=== PATIENT | male | born 1950 | race Caucasian/White ===

== ENCOUNTER → 2018-11-05 | Outpatient (CLI) | payer OTHER, MEDICARE ==
[~2018-11-05] MED LIST: BUSP5 PO; HYDACE5 PO; LORA1 PO; RXHYDACE PO
== END | disposition home or self-care (01) ==
LOC: LAB SHORT 18:08 → LAB EV 18:08
DX: N49.2 Inflammatory disorders of scrotum (principal)
CPT/HCPCS: 87070; 87077; 87147; 87186; 87205

== ENCOUNTER 2019-03-16 19:30 | Emergency (ER) | payer MEDICARE, OTHER ==
[~2019-03-16] VITALS: Ht 177.8 cm; Wt 79.4 kg
[2019-03-16] MEDS ORDERED: LOSA25 (20:09)
[2019-03-16] MEDS ORDERED: TRAZ100 (20:09)
== END 2019-03-16 21:41 | disposition home or self-care (01) ==
LOC: ER 19:30
DX: S61.012A Laceration without foreign body of left thumb without damage to nail, initial encounter (principal); W26.8XXA Contact with other sharp object(s), not elsewhere classified, initial encounter; Z88.8 Allergy status to other drugs, medicaments and biological substances; Z79.899 Other long term (current) drug therapy; Z79.891 Long term (current) use of opiate analgesic; I10 Essential (primary) hypertension; J45.909 Unspecified asthma, uncomplicated; Z87.891 Personal history of nicotine dependence
CPT/HCPCS: 12001; 90471; 90714; 99282-25

== ENCOUNTER 2024-03-31 07:06 | Day surgery (SDC) | payer OTHER ==
[~2024-03-31] VITALS: Ht 177.8 cm; Wt 76.8 kg
[2024-03-31] VITALS (10 sets, daily range): BP systolic 123–172; BP diastolic 49–143
[~2024-03-31 07:06] MED LIST changes: +LOSA25; +TRAZ100
[2024-03-31] MEDS ORDERED: CeFAZolin Sodium 1000 mg Vial ONE (07:28)
[2024-03-31] MEDS ORDERED: Heparin Sodium 1000 Units/ML 10ML MDV ONE (07:29)
[2024-03-31] MEDS ORDERED: NS 1,000 ML IV ONE ×2 (07:29→07:54)
[2024-03-31] MEDS ORDERED: CeFAZolin Sodium 2,000 MG VIAL ONE (07:56)
[2024-03-31] MEDS ORDERED: NS 50 ML IV ONE (07:57)
[2024-03-31] MEDS ORDERED: Midazolam HCl 1MG / ML 2ML Vial ONE (08:22)
[2024-03-31] MEDS ORDERED: FentaNYL Citrate 50 MCG/ML 2 ML Injection ONE (08:22)
--- NOTE | 2024-03-31 10:30 | NUR ---
PATIENT ARRIVED TO RECOVERY ROOM SITTING UPRIGHT IN RECLINER. L CHEST DPPM IN PLACE. DRESSING C/D/I. VSS ON RA. PATIENT CONVERSING APPROPRIATELY
--- NOTE | 2024-03-31 11:00 | NUR ---
2 V CHEST X RAY PERFORMED. PATIENT AMBULATING TO RESTROOM WITHOUT DIFFICULTY. PATIENT TOLERATING PO INTAKE WELL. ICE PACK APPLIED TO LEFT CHEST. VSS ON RA
[2024-03-31] MEDS ORDERED: CHLO25B PO (11:29)
[2024-03-31] MEDS ORDERED: DHEA50 M2 PO (11:29)
[2024-03-31] MEDS ORDERED: AMLO10 PO (11:29)
[2024-03-31] MEDS ORDERED: LOSA50 PO (11:30)
[2024-03-31] MEDS ORDERED: EPLE25 PO (11:30)
[2024-03-31] MEDS ORDERED: MULVITA PO (11:31)
[2024-03-31] MEDS ORDERED: MAGNESIUM250 MG PO (11:31)
[2024-03-31] MEDS ORDERED: POTCHL20ER PO (11:31)
[2024-03-31] MEDS ORDERED: ZINC220 PO (11:32)
[2024-03-31] MEDS ORDERED: TYROSINE PO ×2 (11:32→11:33)
--- NOTE | 2024-03-31 12:00 | NUR ---
EKG PERFORMED PER POST OP ORDERS.
--- NOTE | 2024-03-31 12:23 | NUR ---
DISCHARGE INSTRUCTIONS REVIEWED WITH PATIENT AND SPOUSE. ALL QUETIONS WERE ANSWERED. SMALL AMOUNT OF OOZING NOTED ON DRESSING, WNL. ICE PACK IN PLACE. VSS ON RA
--- NOTE | 2024-03-31 12:26 | NUR ---
PATIENT DISCHARGED HOME AT THIS TIME. LEFT CHEST DRESSING D/I WITH SOME OLD OOZING NOTED. ICE PACK IN PLACE. DISCHARGE INSTRUCTIONS AND APPOINTMENTS REVIEWED WITH PATIENT AND SPOUSE. ALL QUESTIONS WERE ANSWERED. PIV REMOVED WITHOUT DIFFICULTY, CATHETER INTACT. VSS ON RA. PATIENT WHEELED TO HOSPITAL ENTRANCE AND SPOUSE ABLE TO PROVIDE TRANSPORTATION HOME. ALL PATIENT BELONGINGS AND PAPERWORK LEFT WITH PATIENT.
== END 2024-03-31 12:26 | disposition home or self-care (01) ==
LOC: MHTC 07:06
DX: I44.2 Atrioventricular block, complete (principal); I10 Essential (primary) hypertension; E87.8 Other disorders of electrolyte and fluid balance, not elsewhere classified; R00.1 Bradycardia, unspecified; R53.83 Other fatigue; Z88.8 Allergy status to other drugs, medicaments and biological substances; Z79.899 Other long term (current) drug therapy; Z87.891 Personal history of nicotine dependence
CPT/HCPCS: 33208; 71046; 99152; 99153; C1785; C1894; C1898; J0690; J1644; J2250; J3010; J7030; J7040; Q9967

== ENCOUNTER 2024-09-10 12:25 | Day surgery (SDC) | payer OTHER ==
[~2024-09-10] VITALS: Ht 177.8 cm; Wt 77.8 kg
[~2024-09-10 12:25] MED LIST changes: +AMLO10 PO; +CHLO25B PO; +DHEA50 M2 PO; +EPLE25 PO; +LOSA50 PO; +Lactated Ringer's 1,000 ML IV ONE; +MAGNESIUM250 MG PO; +MULVITA PO; +POTCHL20ER PO; +TYROSINE PO; +ZINC220 PO; +propofoL 50 ML IV ONE
[2024-09-10] MEDS ORDERED: FLUO10 (13:43)
[2024-09-10] MEDS ORDERED: Desyrel150 MG (13:43)
[2024-09-10] MEDS ORDERED: TESTOSTERONE200 MG (13:57)
[2024-09-10] MEDS ORDERED: MELATONIN5 M1 (13:58)
[2024-09-10] MEDS ORDERED: Lactated Ringer's 1,000 ML IV ONE (14:32)
[2024-09-10 16:11] VITALS: BP 161/74
== END 2024-09-10 16:18 | disposition home or self-care (01) ==
LOC: ORSCSDS 12:25
PROVIDERS: Internal Medicine Gastroenterology
PROC: 0DBK8ZX Excision of Ascending Colon, Via Natural or Artificial Opening Endoscopic, Diagnostic (ICD-10-PCS; principal; 2024-09-10 14:00)
PROC: 0DBH8ZX Excision of Cecum, Via Natural or Artificial Opening Endoscopic, Diagnostic (ICD-10-PCS; principal; 2024-09-10 14:00)
PROC: 0DBE8ZX Excision of Large Intestine, Via Natural or Artificial Opening Endoscopic, Diagnostic (ICD-10-PCS; principal; 2024-09-10 14:00)
DX: Z12.11 Encounter for screening for malignant neoplasm of colon (principal); R19.5 Other fecal abnormalities; D12.2 Benign neoplasm of ascending colon; D12.0 Benign neoplasm of cecum; K63.5 Polyp of colon; I49.5 Sick sinus syndrome; Z95.0 Presence of cardiac pacemaker; J44.89 Other specified chronic obstructive pulmonary disease; Z87.891 Personal history of nicotine dependence; Z79.899 Other long term (current) drug therapy
CPT/HCPCS: 88305; J2704; J7120

== ENCOUNTER 2024-11-10 07:31 | Day surgery (SDC) | payer OTHER ==
[~2024-11-10] VITALS: Ht 180.3 cm; Wt 78.8 kg
[~2024-11-10 07:31] MED LIST changes: +Desyrel150 MG; +FLUO10; -Lactated Ringer's 1,000 ML IV ONE; +MELATONIN5 M1; +NS 500 ML IV ONE; +NS 500 ML ONE; +TESTOSTERONE200 MG; -propofoL 50 ML IV ONE
[2024-11-10] MEDS ORDERED: NS 500 ML IV ONE ×2 (08:26)
[2024-11-10] MEDS ORDERED: Ondansetron HCl 2 MG / ML 2ML Vial ONE (08:48)
[2024-11-10] MEDS ORDERED: Dexamethasone Sod Phos 10 MG/ML 1ML VIAL ONE (08:48)
[2024-11-10] MEDS ORDERED: FentaNYL Citrate 50 MCG/ML 2 ML Injection ONE (08:48)
[2024-11-10] MEDS ORDERED: Midazolam HCl 1MG / ML 2ML Vial ONE (08:48)
[2024-11-10 09:11] VITALS: BP 118/59
== END 2024-11-10 09:31 | disposition home or self-care (01) ==
LOC: ORSCSDS 07:31
PROVIDERS: Orthopaedic Surgery
PROC: 01N54ZZ Release Median Nerve, Percutaneous Endoscopic Approach (ICD-10-PCS; principal; 2024-11-10 09:00)
DX: G56.02 Carpal tunnel syndrome, left upper limb (principal); I10 Essential (primary) hypertension; E78.5 Hyperlipidemia, unspecified; Z87.891 Personal history of nicotine dependence; J44.9 Chronic obstructive pulmonary disease, unspecified; F32.A Depression, unspecified; Z95.0 Presence of cardiac pacemaker; Z79.899 Other long term (current) drug therapy
CPT/HCPCS: J1100; J2250; J2405; J3010; J7040